=== PATIENT | male | born 1995 | race Asian ===

== ENCOUNTER 2019-01-20 10:33 | Emergency (ER) | payer OTHER ==
[2019-01-20 10:41] VITALS: BP 149/103; PULSE 83; TEMP 99.4; BMI 21.2
[2019-01-20] MEDS ORDERED: IBUPROFEN 600 MG TABLET (FP) PO ONE ×2 (10:57→11:02)
[2019-01-20] MEDS ORDERED: CYCLOBENZAPRINE HCL 10 MG TABLET (FP) PO ONE (10:58)
[2019-01-20] MEDS ORDERED: CYCLOBENZAPRINE HCL 10 MG TABLET (FP) ONE (11:02)
[2019-01-20] MEDS ORDERED: LIDOCAINE HCL 1%, 10 MG/ML (20ML VIAL) ONE (12:01)
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
== END 2019-01-20 12:48 | disposition home or self-care (01) ==
LOC: JERFT 10:33
PROC: 0H9QXZZ Drainage of Finger Nail, External Approach (ICD-10-PCS; principal; 2019-01-20)
DX: S19.80XA Other specified injuries of unspecified part of neck, initial encounter (principal); M54.2 Cervicalgia; S60.152A Contusion of left little finger with damage to nail, initial encounter; V43.52XA Car driver injured in collision with other type car in traffic accident, initial encounter; W22.11XA Striking against or struck by driver side automobile airbag, initial encounter; Y92.414 Local residential or business street as the place of occurrence of the external cause; Y93.89 Activity, other specified; Y99.8 Other external cause status
CPT/HCPCS: 73140-TC-LT-FY; 99281-25